=== PATIENT | male | born 1960 | race Caucasian/White ===

== ENCOUNTER 2017-02-26 22:17 | Emergency (ER) | payer MEDICAID ==
[~2017-02-26] VITALS: Ht 172.7 cm; Wt 95.5 kg
[2017-02-26 22:29] VITALS: Ht 172.7 cm; Wt 95.5 kg
[2017-02-26] MEDS ORDERED: ONDANSETRON 4 MG INJ IV STA (22:35)
[2017-02-26] MEDS ORDERED: morphine 4 MG/ML VIAL IV STA (22:35)
--- NOTE | 2017-02-26 23:39 | RADRPT ---
PROCEDURE: CT lumbar spine without contrast CLINICAL INDICATION: Back pain. TECHNIQUE: A CT scan of the lumbar spine was performed without intravenous contrast. Coronal and s agittal reformatted images were generated. DICOM images are available. CTDIvol: 26.52 mGy. DLP: 772. 76 mGy-cm. One or more of the following dose reduction techniques were used: - Automated exposure control. - Adjustment of the mA and/or kV according to patient size. - Use of iterative reconstruction technique. COMPARISON: None. FINDINGS: The lumbar lordosis is preserved without spondylolisthesis. The vertebral body heights are maintain ed. Bone mineralization is normal and there is no suspicious osseous lesion. No fracture or sublux ation is identified. T12-L1: There is no significant degenerative change. No spinal canal stenosis or neural foraminal n arrowing is seen. L1-L2: There is minimal disc bulging without spinal canal stenosis. Mild right neural foraminal narr owing is noted due to disc bulging. L2-L3: There is mild disc bulging, leading to borderline spinal canal stenosis and mild bilateral ne ural foraminal narrowing. L3-L4: There is mild disc bulging, leading to borderline spinal canal stenosis and mild bilateral ne ural foraminal narrowing. L4-L5: There is moderate disc bulging, leading to mild spinal canal stenosis. There is also narrowin g of the lateral recesses, left more than right, with possible mass effect on the traversing L5 nerv e roots. There is moderate bilateral neural foraminal narrowing due to disc bulging. Moderate left f acet arthrosis is also noted at this level. L5-S1: There is minimal posterior bulging, without spinal canal stenosis. There is mild left neural foraminal narrowing due to disc bulging. Mild multilevel anterior osteophytes are noted along the lumbar spine, most prominent at L3-L4. The extra spinal soft tissues are unremarkable. IMPRESSION: 1. No lumbar spine fracture or subluxation. 2. L4-L5, there is mild spinal canal stenosis with narrowing of the lateral recesses, left more claudia n right, and possible mass effect on the traversing L5 nerve roots. There is also moderate bilateral neural foraminal narrowing at this level. 3. Additional less severe degenerative changes along the remainder of the lumbar spine, described i n detail in the findings. RPTAT: HTAR .Dallin Brennan MD, MD Date Time Electronically viewed and signed by .Dallin Brennan MD, MD on 02/26/2017 23:39 .R/
[2017-02-26 23:45] LABS: BASOPHILS % 0.5 % (0.0-2.0); EOSINOPHILS # 0.1 10^3/ul (0.0-0.5); EOSINOPHILS % 0.8 % (0.0-7.0); HEMATOCRIT 39.3 % (42.0-52.0); HEMOGLOBIN 13.5 g/dl (14.0-18.0); LYMPHOCYTES # 1.6 10^3/ul (0.8-2.9); LYMPHOCYTES % 17.7 % (15.0-51.0); MEAN CORPUSCULAR HEMOGLOBIN 29.8 pg (29.0-33.0); MEAN CORPUSCULAR HGB CONC 34.4 g/dl (32.0-37.0); MEAN CORPUSCULAR VOLUME 86.8 fl (82.0-101.0); MEAN PLATELET VOLUME 9.7 fl (7.4-10.4); MONOCYTE # 0.7 10^3/ul (0.3-0.9); MONOCYTES % 7.9 % (0.0-11.0); NEUTROPHIL # 6.5 10^3/ul (1.6-7.5); NEUTROPHILS % 72.9 % (39.0-77.0); PLATELET COUNT 238 10^3/UL (140-415); RED BLOOD COUNT 4.53 10^6/ul (4.70-6.10); RED CELL DISTRIBUTION WIDTH 11.9 % (11.5-14.5); WHITE BLOOD COUNT 8.9 10^3/ul (4.8-10.8)
[2017-02-27 00:06] LABS: INR 0.96; PROTIME 12.9 Sec (11.9-14.9)
[2017-02-27 00:07] LABS: ALBUMIN/GLOBULIN RATIO 1.29; BILIRUBIN,INDIRECT 0.3 mg/dl (0-1.1); BILIRUBIN,TOTAL 0.3 mg/dl (0.2-1.3); CALCIUM 9.2 mg/dl (8.4-10.2); CREATININE 0.82 mg/dl (0.61-1.24); PARTIAL THROMBOPLASTIN TIME 25.8 Sec (25.0-35.0); POTASSIUM 3.9 mmol/L (3.5-5.1); TOTAL PROTEIN 7.1 g/dl (6.1-8.1)
[2017-02-27] MEDS ORDERED: KETOROLAC 30 MG INJ IV STA (00:07)
[2017-02-27] MEDS ORDERED: DEXAMETHASONE 10 MG/ML 1 ML INJ IV ONE (00:30)
[2017-02-27] MEDS ORDERED: HYDROmorphONE 1 MG/ML SYG IV STA (01:05)
[2017-02-27] MEDS ORDERED: HYDR-902 PO (01:30)
[2017-02-27] MEDS ORDERED: DIAZ-90 PO (01:30)
--- NOTE | 2017-02-27 01:32 | ERD ---
ER Documentation Chief Complaint Chief Complaint SEVERE BACK DUE TO A FALL YESTERDAY, PT UNABLE TO WALK OR MOVE WITHOUT PAIN HPI This is a 56-year-old male with severe back pain secondary to fall yesterday. Patient he has pain with ambulation. Pain is mild to moderate intensity. No fevers no chills. No bowel or bladder incontinence. No other current complaints. ROS All systems reviewed and are negative except as per history of present illness. Medications Home Meds Active Scripts Diazepam* (Valium*) 5 Mg Tablet, 5 MG PO Q8, #10 TAB Prov:CLEMENTINE COLLAZO 02/27/17 Hydrocodone/Acetaminophen ([place] 10-325 Tablet) 1 Each Tablet, 1 TAB PO Q6H Y for PAIN, #20 TAB Prov:CLEMENTINE COLLAZO 02/27/17 Allergies Allergies: Coded Allergies: No Known Allergy (Unverified , 02/26/17) PMhx/Soc Medical and Surgical Hx: pt denies Medical Hx History of Surgery: Yes (hernia repair) Anesthesia Reaction: No Hx Neurological Disorder: No Hx Respiratory Disorders: No Hx Cardiac Disorders: No Hx Psychiatric Problems: No Hx Miscellaneous Medical Probl: No Hx Alcohol Use: No Hx Tobacco Use: Yes (1 can beer/ w/e) Smoking Status: Never smoker Physical Exam Vitals Vital Signs Date Time Temp Pulse Resp B/P Pulse Ox O2 Delivery O2 Flow Rate FiO2 02/27/17 00:34 50 18 137/73 97 Room Air 02/26/17 22:50 57 16 171/89 02/26/17 22:45 98.1 57 16 179/99 97 Room Air 02/26/17 22:29 97.8 58 20 178/95 97 Physical Exam Const: [] Head: Atraumatic Eyes: Normal Conjunctiva ENT: Normal External Ears, Nose and Mouth. Neck: Full range of motion..~ No meningismus. Resp: Clear to auscultation bilaterally Cardio: Regular rate and rhythm, no murmurs Abd: Soft, non tender, non distended. Normal bowel sounds Skin: No petechiae or rashes Back: No midline or flank tenderness Ext: No cyanosis, or edema Neur: Awake and alert Psych: Normal Mood and Affect Result Diagram: 02/26/17 9266 02/26/17 2326 Results 24 hrs Laboratory Tests Test 02/26/17 23:26 White Blood Count 8.910^3/ul Red Blood Count 4.5310^6/ul Hemoglobin 13.5g/dl Hematocrit 39.3% Mean Corpuscular Volume 86.8fl Mean Corpuscular Hemoglobin 29.8pg Mean Corpuscular Hemoglobin Concent 34.4g/dl Red Cell Distribution Width 11.9% Platelet Count 92609^3/UL Mean Platelet Volume 9.7fl Neutrophils % 72.9% Lymphocytes % 17.7% Monocytes % 7.9% Eosinophils % 0.8% Basophils % 0.5% Nucleated Red Blood Cells % 0.0/100WBC Neutrophils # 6.510^3/ul Lymphocytes # 1.610^3/ul Monocytes # 0.710^3/ul Eosinophils # 0.110^3/ul Basophils # 0.010^3/ul Nucleated Red Blood Cells # 0.010^3/ul Prothrombin Time 12.9Sec Prothrombin Time Ratio 1.0 INR International Normalized Ratio 0.96 Activated Partial Thromboplast Time 25.8Sec Sodium Level 141mmol/L Potassium Level 3.9mmol/L Chloride Level 104mmol/L Carbon Dioxide Level 28mmol/L Anion Gap 13 Blood Urea Nitrogen 13mg/dl Creatinine 0.82mg/dl Glucose Level 101mg/dl Calcium Level 9.2mg/dl Total Bilirubin 0.3mg/dl Direct Bilirubin 0.00mg/dl Indirect Bilirubin 0.3mg/dl Aspartate Amino Transf (AST/SGOT) 21IU/L Alanine Aminotransferase (ALT/SGPT) 33IU/L Alkaline Phosphatase 70IU/L Total Protein 7.1g/dl Albumin 4.0g/dl Globulin 3.10g/dl Albumin/Globulin Ratio 1.29 Lipase 89U/L Current Medications Medications (Trade) Dose Ordered Sig/Miguel Ángel Route PRN Reason Start Time Stop Time Status Last Admin Dose Admin Morphine Sulfate (morphine) 4 mg ONCE STAT IV 02/26/17 22:35 02/26/17 22:37 DC 02/26/17 23:38 Ondansetron HCl (Zofran Inj) 4 mg ONCE STAT IV 02/26/17 22:35 02/26/17 22:37 DC 02/26/17 23:38 Dexamethasone (Decadron) 10 mg ONCE ONCE IV 02/27/17 00:30 02/27/17 00:31 DC 02/27/17 00:26 Ketorolac Tromethamine (Toradol) 30 mg ONCE STAT IV 02/27/17 00:07 02/27/17 00:08 DC 02/27/17 00:25 Hydromorphone HCl (Dilaudid) 1 mg ONCE STAT IV 02/27/17 01:05 02/27/17 01:06 DC 02/27/17 01:09 Procedures/MDM Patient's musculoskeletal symptoms have stabilized while they have been evaluated in the department and are appropriate for outpatient work up. No evidence of cauda equina, cord compression, infiltrative, or infectious etiology. Departure Diagnosis: Primary Impression: Back pain Back pain location: back pain in unspecified location Chronicity: unspecified Back pain laterality: unspecified Qualified Code: M54.9 - Back pain, unspecified back location, unspecified back pain laterality, unspecified chronicity Condition: Stable Patient Instructions: Back Pain (Acute Or Chronic) CLEMENTINE COLLAZO Feb 27, 2017 01:32
[2017-02-27 01:41] VITALS: BP 146/74; PULSE 76; RESP 16; TEMP 98.6
== END 2017-02-27 01:41 | disposition home or self-care (01) ==
LOC: E/R 22:17
DX: M54.9 Dorsalgia, unspecified (principal); R07.9 Chest pain, unspecified; Z87.891 Personal history of nicotine dependence
CPT/HCPCS: 36415; 72131; 80053; 83690; 85025; 85610; 85730; 93005; 96374; 96375; J1100; J1170; J1885; J2270; J2405; Z7502